=== PATIENT | female | born 1945 | race Caucasian/White ===

== ENCOUNTER 2018-08-22 06:25 | Day surgery (SDC) | payer MEDICARE ==
[2014-05-29 10:39] VITALS: BMI 23.4
[2018-08-22] MEDS ORDERED: Midazolam 2 MG/2 ML VIAL ONE (08:06)
[2018-08-22] MEDS ORDERED: Propofol 10 mg/ml Inj (20 ML) ONE (08:07)
[2018-08-22] MEDS ORDERED: Lactated Ringer's 1,000 ML IV ONE (08:07)
--- NOTE | 2018-08-22 08:07 | CP.SDSHP ---
Same Day Surgery H & P - History Proposed Procedure: colonoscopy Pre-Op Diagnosis: screen - Previous Medical/Surgical History Cardiac: Hypertension, ASHD/CAD Endocrine/Metabolic: Diabetes - Allergies Allergies: Allergies No Known Allergies Allergy (Verified 08/22/18 06:54) - Physical Exam Vital Signs: Vital Signs 08/22/18 08/22/18 06:45 07:12 Temperature 97 F L Pulse Rate 77 77 Respiratory 19 Rate Blood Pressure 144/63 O2 Sat by Pulse 99 Oximetry Mental Status: Alert & Oriented x3 Neuro: WNL Heart: WNL Lungs: WNL GI: WNL - {Optional Preform as Required} Abdomen: WNL - Impression Impression: screen Pt. Evaluated Today:Candidate for Anesthesia & Procedure: Yes - Date & Time Date: 08/22/18 Time: 07:50 Short Stay Discharge - Short Stay Discharge Admitting Diagnosis/Reason for Visit: SCREENING Disposition: HOME/ ROUTINE
[2018-08-22 12:45] VITALS: BP 121/55; PULSE 71; RESP 13; TEMP 98.5; O2SAT 100
== END 2018-08-22 09:35 | disposition home or self-care (01) ==
LOC: C.ENDO 06:25
PROVIDERS: ATTEND Internal Medicine Gastroenterology
DX: Z12.11 Encounter for screening for malignant neoplasm of colon (principal); K57.30 Diverticulosis of large intestine without perforation or abscess without bleeding; K64.8 Other hemorrhoids
CPT/HCPCS: 45378; 82948; J2250; J2704; J7120